=== PATIENT | female | born 1965 | race African-American/Black ===

== ENCOUNTER 2017-06-09 16:24 | Observation (INO) | payer SELFPAY ==
[2017-06-09] MEDS ORDERED: hydrALAZINE 20 MG/ML VIAL ONE ×2 (17:00→18:05)
[2017-06-09] MEDS ORDERED: Ketorolac Tromethamine 30 MG/ML VIAL ONE (17:00)
[2017-06-09 17:18] LABS: #Basophils 0.1 thou/uL (0.0-0.2); #Eosinphils 0.1 thou/uL (0.0-0.7); #Lymphocytes 2.2 thou/uL (1.20-3.40); #Monocytes 0.4 thou/uL (0.11-0.59); #Neutrophils 3.2 thou/uL (1.40-6.50); %Basophils 1.9 % (0.0-1.0); %Eosinophils 1.3 % (0.0-10.0); %Lymphocytes 36.3 % (21.0-51.0); %Monocytes 7.1 % (0.0-10.0); Hematocrit 40.7 % (36.0-47.0); Mean Platelet Volume 9.3 fL (7.4-10.4); Red Blood Cell (RBC) Count 4.21 mill/uL (4.20-5.40)
[2017-06-09 17:32] LABS: ALT (SGPT) 27 U/L (8-55); AST (SGOT) 45 U/L (5-34); Alkaline Phosphatase 91 U/L (40-150); Anion Gap 12 mmol/L (10-20); BUN (Urea Nitrogen) 9 mg/dL (9.8-20.1); Bilirubin, Total 0.7 mg/dL (0.2-1.2); CK (CPK) 110 U/L (29-168); Calc. Creatinine Clearance 0 mL/min (70-130); Calcium 9.6 mg/dL (7.8-10.44); Carbon Dioxide 28 mmol/L (22-29); Chloride 99 mmol/L (98-107); Estimated GFR-MDRD Greater than 90; Lipase 20 U/L (8-78); Protein, Total 7.9 g/dL (6.0-8.3)
[2017-06-09 17:37] LABS: Troponin I Less than 0.010 ng/mL (< 0.028)
[2017-06-09] MEDS ORDERED: cloNIDine 0.1 MG TAB ONE (19:32)
--- NOTE | 2017-06-09 19:48 | RAD ---
AP VIEW CHEST: 06/09/17 HISTORY: Chest pain. AP view chest is obtained on 06/09/17. Comparison made to previous exam from 04/22/16. AP view chest demonstrates the lungs to be well aerated. No evidence of active intrathoracic disease seen. No evidence of effusions, pneumonia or pneumothorax seen. IMPRESSION: Unremarkable AP view chest. POS: [facility]
[2017-06-09] MEDS ORDERED: Sodium Chloride 0.9% 1,000 ML IV SCH (20:30)
[2017-06-09] MEDS ORDERED: Ondansetron ODT 4 MG TAB SL PRN (20:30)
[2017-06-09] MEDS ORDERED: Ondansetron HCl/PF 4 MG/2 ML Vial IVP PRN (20:30)
[2017-06-09 20:34] LABS: Troponin I Less than 0.010 ng/mL (< 0.028)
[2017-06-09] MEDS ORDERED: Acetaminophen 325 MG TAB PO PRN (20:46)
[2017-06-09] MEDS ORDERED: Ibuprofen 200 MG TAB PO PRN (20:46)
[2017-06-09] MEDS: Lisinopril 20 MG TAB PO SCH (21:17)
[2017-06-09 21:32] VITALS: BMI 35.4
[2017-06-09] MEDS: cloNIDine 0.1 MG TAB PO PRN (23:56)
[2017-06-10 01:10] LABS: Troponin I Less than 0.010 ng/mL (< 0.028)
[2017-06-10] MEDS: hydrALAZINE 20 MG/ML VIAL SLOW IVP PRN ×2 (01:15→14:02)
[2017-06-10] MEDS: cloNIDine 0.1 MG TAB PO PRN (06:00)
[2017-06-10] MEDS: Lisinopril 20 MG TAB PO SCH (08:24)
[2017-06-10] MEDS ORDERED: Amlodipine 10 MG TAB PO SCH (09:30)
[2017-06-10 15:30] VITALS: BP 110/82; TEMP 98.8
--- NOTE | 2017-06-10 22:36 | HP ---
DATE OF ADMISSION: 06/09/2017 REASON FOR ADMISSION/CHIEF COMPLAINT: Evaluation for high blood pressure. HISTORY OF PRESENT ILLNESS: Ms. Narayan is a 51-year-old -[place] female with past medical hi story of hypertension, who came because of elevated blood pressure. The patient has not seen any do ctor in the outpatient setting. She was seen in the ER a month ago, given lisinopril and she came b ecause her blood pressure was elevated. The patient also complained of headache when she came. In the ER, the patient was evaluated and found to have markedly elevated blood pressure. Her blood pre ssure was 175/135, in the ER came down with medication to 150/100, she was admitted for hypertensive emergency. No history of nausea or vomiting, had some abdominal discomfort, no dizziness. PAST MEDICAL HISTORY: 1. Hypertension. 2. Noncompliant. PAST SURGICAL HISTORY: Status post . CURRENT MEDICATIONS: The patient is on lisinopril 20 mg daily. ALLERGIES: MORPHINE. FAMILY HISTORY: Nothing of interest. SOCIAL HISTORY: The patient lives alone. Drinks alcohol 5 drinks per day. No history of smoking. No history of illicit drug use. REVIEW OF SYSTEMS: Unremarkable except for the headache. PHYSICAL EXAMINATION: GENERAL: The patient is alert, awake and oriented x3. VITAL SIGNS: Temperature 98, pulse 93, respirations 20, blood pressure 150/100. HEENT: Head is normocephalic, atraumatic. Pupils are equal and reactive. Nasopharynx is pink and moist. NECK: Supple. No JVD. LUNGS: Bilateral air entry present, no rales, no rhonchi. CARDIAC: S1, S2 regular. ABDOMEN: Soft. No tenderness noted. Normal bowel sounds present. RECTAL: Deferred. CENTRAL NERVOUS SYSTEM: No focal deficits. LABORATORY AND X-RAY FINDINGS: CBC shows WBC 6, hemoglobin 13, hematocrit 40, platelets 209. Metab olic panel: Sodium 135, potassium 3.9, chloride 99, CO2 of 28, urea nitrogen 9, creatinine 0.7, glu cose 99. CK-MB 1.1, troponin less than 0.010. BNP was 118. Chest x-ray unremarkable. EKG showed normal sinus rhythm, no acute ST-T wave changes seen. ASSESSMENT: 1. Hypertensive urgency. 2. Noncompliant with medications. PLAN: 1. Activity as tolerated. 2. Allergies: MORPHINE. 3. Diet: Cardiac. 4. Hep-Lock. 5. Continue home medication. 6. Hydralazine 10 mg IVP q.6 hours p.r.n. When the blood pressure is the controlled, the patient w ill be discharged home.
[2017-06-11] MEDS ORDERED: Amlodipine 10 MG TAB PO SCH (09:00)
--- NOTE | 2017-06-11 12:58 | DIS ---
DATE OF ADMISSION: 06/09/2017 DATE OF DISCHARGE: 06/10/2017 ADMITTING DIAGNOSES: 1. Hypertensive emergency. 2. Noncompliant with medications. FINAL DIAGNOSES: 1. Hypertensive emergency, improved. 2. Noncompliant with medications. BRIEF SUMMARY OF HOSPITAL COURSE: Ms. Narayan is a 51-year-old -[place] female, admitted demond use of elevated blood pressure and headache, patient with markedly elevated blood pressure. Patient had not been taking medications and not followed by any doctor. The patient was started on lisinop ril, which increased to twice a day and also started on Norvasc 10 mg daily. 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 The patient's blood pressure was controlled with medications, her headache also impr milagros. In view of improvement, the patient is being discharged home. At the time of discharge, she was stable. Her vital signs were stable. Lungs clear. Heart sounds regular. Abdomen was soft, no ntender. Bowel sounds present. DISCHARGE MEDICATIONS: Include amlodipine 10 mg daily, hydralazine 50 b.i.d., ibuprofen p.r.n. FOLLOWUP: The patient will come for followup in 2 weeks.
== END 2017-06-10 17:49 | disposition home or self-care (01) ==
LOC: ERS 16:24 → 2SW 20:22
PROVIDERS: ADMIT Internal Medicine; ATTEND Internal Medicine
DX: I16.1 Hypertensive emergency (principal); Z91.14 Patient's other noncompliance with medication regimen; R05 Cough; I10 Essential (primary) hypertension; Z79.899 Other long term (current) drug therapy; Z88.5 Allergy status to narcotic agent; Z98.890 Other specified postprocedural states
CPT/HCPCS: 36415; 71010; 80053; 82550; 82553; 83690; 83880; 84484; 85025; 93005; 96361; 96374; 96375; 96376; G0378; J0360; J1885

== ENCOUNTER 2017-07-18 16:39 | Emergency (ER) | payer SELFPAY ==
[~2017-07-18 16:39] MED LIST: Iopamidol 370 76% 100 ML VIAL ONE
[2017-07-18] MEDS ORDERED: Ketorolac Tromethamine 30 MG/ML VIAL ONE (17:12)
[2017-07-18] MEDS ORDERED: Ondansetron HCl/PF 4 MG/2 ML Vial ONE (17:12)
[2017-07-18 17:42] LABS: Hematocrit 36.8 % (36.0-47.0); Red Blood Cell (RBC) Count 3.81 mill/uL (4.20-5.40); White Blood Cell (WBC) Count 8.5 thou/uL (4.8-10.8)
[2017-07-18 17:59] LABS: Band 2 % (5-11); Neutrophil 86 % (42-75); Reactive Lymphocytes 1 % (0-10)
--- NOTE | 2017-07-18 18:04 | CT ---
CT OF THE ABDOMEN AND PELVIS WITH IV CONTRAST 07/18/17 INDICATION: Abdominal pain with vomiting. COMPARISON: CT Aortic dissection protocol dated 03/23/11. FINDINGS: There is fatty infiltration of the liver. There is a granuloma involving the spleen. Pancr eas and adrenal glands and kidneys are normal appearing. No hydronephrosis is evident. No free fluid or enlarged lymph nodes are present. There is a heterogeneous lobulated uterus with associated calcif ications suspicious for fibroid uterus. The uterus appears slightly smaller than on the comparison ex amination. Low density endometrial fluid seen on the comparison exam is no longer demonstrated. The r ectum and sigmoid colon are largely decompressed. Portions of the ascending colon and transverse colo n are also decompressed. There is a normal appendix in the right lower quadrant. Small bowel is of no rmal caliber. No acute osseous abnormality is evident. IMPRESSION: 1. Fatty liver. 2. Findings of prior granulomatous disease. 3. Lobulated uterus with calcifications suspicious for underlying fibroid disease. 4. Other findings as above. POS: [facility]
[2017-07-18 18:07] LABS: ALT (SGPT) 31 U/L (8-55); AST (SGOT) 91 U/L (5-34); Alkaline Phosphatase 88 U/L (40-150); Anion Gap 15 mmol/L (10-20); BUN (Urea Nitrogen) 8 mg/dL (9.8-20.1); Bilirubin, Total 0.5 mg/dL (0.2-1.2); Calc. Creatinine Clearance 0 mL/min (70-130); Carbon Dioxide 23 mmol/L (22-29); Chloride 100 mmol/L (98-107); Estimated GFR-MDRD Greater than 90; Globulin 3.9 g/dL (2.4-3.5); Lipase 14 U/L (8-78); Magnesium 1.2 mg/dL (1.6-2.6); Protein, Total 7.6 g/dL (6.0-8.3)
--- NOTE | 2017-07-18 18:10 | RAD ---
PA AND LATERAL OF THE CHEST 07/18/17 INDICATION: Nausea, vomiting. IMPRESSION: No acute cardiopulmonary abnormality. COMMENTS: Exam is compared to prior dated 06/09/17. Lungs are clear. The cardiomediastinal silhouette is within normal limits. No acute osseous abnormality is evident. POS: [facility]
[2017-07-18 18:11] LABS: Troponin I Less than 0.010 ng/mL (< 0.028)
[2017-07-18] MEDS ORDERED: Magnesium 2 GM/NS 0.9% 50 ML 2 GM in Premix Bag 1 BAG IVPB ONE (19:00)
[2017-07-18 19:03] LABS: Bilirubin Negative (Negative); Blood, Urine Negative (Negative); Glucose, Urine (Dipstick) Negative (Negative); Ketone, Urine Negative (Negative); Nitrite Negative (Negative); Protein, Urine (Dipstick) Negative (Neg-Trace); Urobilinogen 0.2 mg/dL (0.2-1.0)
[2017-07-18 19:22] LABS: Bacteria/HPF Rare-Few HPF (None Seen); Hyaline Casts/LPF NONE SEEN LPF (0-3 Hyaline); RBC/HPF 0-3 HPF (0-3); Squamous Epithelial 0-3 HPF (0-3)
[2017-07-18] MEDS ORDERED: hydrALAZINE 25 MG TAB ONE (20:04)
== END 2017-07-18 21:28 | disposition home or self-care (01) ==
LOC: ERS 16:39
DX: N39.0 Urinary tract infection, site not specified (principal); K21.9 Gastro-esophageal reflux disease without esophagitis; I10 Essential (primary) hypertension
CPT/HCPCS: 71020; 74177; 80053; 81003; 81015; 82553; 83605; 83690; 83735; 84484; 85025; 87077; 87086; 87186; 96361; 96365; 96375; J1885; J2405; J3475